=== PATIENT | female | born 1985 | race Caucasian/White ===

== ENCOUNTER 2018-11-23 11:43 | Emergency (ER) | payer BC, OTHER ==
--- NOTE | 2018-11-23 12:06 | EDM.PDOC ---
ED HPI GENERAL MEDICAL PROBLEM - General Chief Complaint: Respiratory Problem Stated Complaint: COUGH Time Seen by Provider: 11/23/18 11:43 Source of Information: Reports: Patient History Limitations: Reports: No Limitations - History of Present Illness INITIAL COMMENTS - FREE TEXT/NARRATIVE: HISTORY AND PHYSICAL: History of present illness: Patient is a 33-year-old woman presenting to the emergency room for chief complaint of cough. Patient states on Friday her cough developed and has been getting worse every day since. She describes her cough as dry, but sometimes it is productive and her mucous is green in color. She states that she has had a sore throat intermittently, "loss of voice", chest tightness, pain in her ears, headache, pressure in sinuses, congested, and did vomit on Friday with a "lot of mucus". She states that a warm shower does help with her congestion and getting the mucus out of her lungs. She denies being asthmatic, but does smoke 1 pack per day of cigarettes for the last 15 years. She does get short of breath with activity, otherwise denies shortness of breath. Patient also denies chest pain, abdominal pain, nausea, or vomiting. She has not been around anyone else who is currently sick. Review of systems: As per history of present illness and below otherwise all systems reviewed and negative. Past medical history: As per history of present illness and as reviewed below otherwise noncontributory. Surgical history: As per history of present illness and as reviewed below otherwise noncontributory. Social history: See social history for further information Family history: As per history of present illness and as reviewed below otherwise noncontributory. Physical exam: General: Patient is a well-groomed and well-nourished 33-year-old female. Alert and orientated. Nontoxic in appearance. Vital signs are stable and have been reviewed by me. HEENT: Patient is tender to palpation of the frontal and maxillary sinuses, normocephalic, pupils equal and reactive bilaterally, negative for conjunctival pallor or scleral icterus, mucous membranes moist, TMs normal bilaterally, throat clear, neck supple, nontender, trachea midline. No drooling or trismus noted. No meningeal signs. No hot potato voice noted. Lungs: Clear to auscultation, breath sounds equal bilaterally, chest nontender. Heart: S1S2, regular rate and rhythm without overt murmur Abdomen: Soft, nondistended, nontender. Negative for masses or hepatosplenomegaly. Negative for costovertebral tenderness. Skin: Intact, warm, dry. No lesions or rashes noted. Extremities: Atraumatic, moves all extremities per self without difficulty or deficits, negative for cords or calf pain. Neurovascular unremarkable. Neuro: Awake, alert, oriented. Cranial nerves II through XII unremarkable. Cerebellum unremarkable. Motor and sensory unremarkable throughout. Exam nonfocal. Notes: Patient denies being , stating that she has had an Essure procedure. Chest x-ray was normal. Due to the patient's symptoms of upper respiratory and sinus issues, we will treat with Augmentin. Supportive care measures were reviewed and discussed. Voices understanding and is agreeable to plan of care. Denies any further questions or concerns at this time. Diagnostics: Chest X ray, 2 views Therapeutics: None Prescription: Augmentin 875 mg Impression: Acute sinusitis Acute bronchitis Plan: 1. Take your medication as directed. 2. Tylenol and or ibuprofen as needed for pain management. 3. Follow-up with your primary care provider in the next 1-2 days if symptoms worsen as discussed. Return to the ED as needed and as discussed. Definitive disposition and diagnosis as appropriate pending reevaluation and review of above. Throat Pain Score (Numeric/FACES): 6 - Related Data Allergies Allergy/AdvReac Type Severity Reaction Status Date / Time morphine Allergy Nausea Verified 11/23/18 11:54 tramadol Allergy Nausea and Verified 11/23/18 11:54 Vomiting Home Meds: Home Meds Acid Medication 11/23/18 [History] Amoxicillin/Clavulanate K [Augmentin 875-125 MG] 1 tab PO BID 10 Days #20 tablet 11/23/18 [Rx] Gabapentin [Neurontin] 600 mg PO TID 11/23/18 [History] ED ROS GENERAL - Review of Systems Review Of Systems: ROS reveals no pertinent complaints other than HPI. ED EXAM, GENERAL - Physical Exam Exam: See Below (See dictation) Course - Vital Signs Last Recorded V/S: Last Vital Signs Temp 98.3 F 11/23/18 11:55 Pulse 97 11/23/18 11:55 Resp 18 11/23/18 11:55 BP 128/78 11/23/18 11:55 Pulse Ox 97 11/23/18 11:55 Departure - Departure Time of Disposition: 13:03 Disposition: Home, Self-Care 01 Clinical Impression: Bronchitis Sinusitis, acute Qualifiers: Sinusitis location: frontal Recurrence: non-recurrent Qualified Code(s): J01.10 - Acute frontal sinusitis, unspecified - Discharge Information Instructions: Sinusitis, Adult, [id number] Referrals: PCP,Not In Area [Primary Care Provider] - Forms: ED Department Discharge Additional Instructions: The following information is given to patients seen in the emergency department who are being discharged to home. This information is to outline your options for follow-up care. We provide all patients seen in our emergency department with a follow-up referral. The need for follow-up, as well as the timing and circumstances, are variable depending upon the specifics of your emergency department visit. If you don't have a primary care physician on staff, we will provide you with a referral. We always advise you to contact your personal physician following an emergency department visit to inform them of the circumstance of the visit and for follow-up with them and/or the need for any referrals to a consulting specialist. The emergency department will also refer you to a specialist when appropriate. This referral assures that you have the opportunity for follow-up care with a specialist. All of these measure are taken in an effort to provide you with optimal care, which includes your follow-up. Under all circumstances we always encourage you to contact your private physician who remains a resource for coordinating your care. When calling for follow-up care, please make the office aware that this follow-up is from your recent emergency room visit. If for any reason you are refused follow-up, please contact the [facility] Emergency Department at and asked to speak to the emergency department charge nurse. [facility] [address] [place] [id number] [address] Plan: 1. Take your medication as directed. 2. Tylenol and or ibuprofen as needed for pain management. 3. Follow-up with your primary care provider in the next 1-2 days if symptoms worsen as discussed. Return to the ED as needed and as discussed.
--- NOTE | 2018-11-23 13:01 | CR ---
INDICATION: Pain/SOB TECHNIQUE: Chest 2 view. COMPARISON: None. FINDINGS: Cardiovascular and mediastinum: Heart size and vasculature are normal in caliber and appearance. Mediastinum is within normal limits. Lungs and pleural space: Lungs are clear. No sign of infiltrate or mass. No sign of pleural effusion. No pneumothorax. Bones and soft tissues: No significant findings. IMPRESSION: Unremarkable chest. Dictated by: Oliver Das MD @ 11/23/2018 12:59:33 (Electronically Signed)
== END 2018-11-23 13:12 | disposition home or self-care (01) ==
LOC: MW.ED 11:43
DX: J01.10 Acute frontal sinusitis, unspecified (principal); J20.9 Acute bronchitis, unspecified; Z88.5 Allergy status to narcotic agent
CPT/HCPCS: 71046; 71046-26; 99282; 99283-25

== ENCOUNTER 2019-09-04 11:50 | Emergency (ER) | payer BC ==
[2019-09-04] MEDS ORDERED: Metoclopramide 10 MG/2 ML SDV IVPUSH ONE (12:49)
[2019-09-04] MEDS ORDERED: diphenhydrAMINE 50 MG/ML SDV IVPUSH ONE (12:49)
[2019-09-04] MEDS ORDERED: Ketorolac 30 MG/ML SDV IVPUSH ONE (12:50)
[2019-09-04] MEDS ORDERED: Sodium Chloride 0.9% 1,000 ML IV ONE (12:50)
[2019-09-04] MEDS ORDERED: Sodium Chloride 0.9% 2.5 ML Syringe FLUSH PRN (12:51)
[2019-09-04] MEDS ORDERED: Sodium Chloride 0.9% 10 ML Syringe FLUSH PRN (12:51)
--- NOTE | 2019-09-04 12:53 | EDM.PDOC ---
ED HPI GENERAL MEDICAL PROBLEM - General Chief Complaint: Headache Stated Complaint: MIGRAINE Time Seen by Provider: 09/04/19 12:41 - History of Present Illness INITIAL COMMENTS - FREE TEXT/NARRATIVE: History of present illness: Patient presents with a headache. Headache is been present for 7 days atraumatic afebrile she has a history of migraines this is like her typical migraine not getting better with [id number] and borrowed prescription medications. She denies any current vomiting no weakness on one side or another nothing makes it better movement and light make it worse Review of systems: As per history of present illness and below otherwise all systems reviewed and negative. Past medical history: As per history of present illness and as reviewed below otherwise noncontributory. Surgical history: As per history of present illness and as reviewed below otherwise noncontributory. Social history: No reported history of drug or alcohol abuse. Family history: As per history of present illness and as reviewed below otherwise noncontributory. Physical exam: HEENT: Atraumatic, normocephalic, pupils reactive, negative for conjunctival pallor or scleral icterus, mucous membranes moist, throat clear, neck supple, nontender, trachea midline. Lungs: Clear to auscultation, breath sounds equal bilaterally, chest nontender. Heart: S1S2, regular, negative for clicks, rubs, or JVD. Abdomen: Soft, nondistended, nontender. Negative for masses or hepatosplenomegaly. Negative for costovertebral tenderness. Pelvis: Stable nontender. Genitourinary: Deferred. Rectal: Deferred. Extremities: Atraumatic, negative for cords or calf pain. Neurovascular unremarkable. Neuro: Awake, alert, oriented. Cranial nerves II through XII unremarkable. Cerebellum unremarkable. Motor and sensory unremarkable throughout. Exam nonfocal. Diagnostics: [] Therapeutics: [] Impression: Headache [] Plan: Benadryl Reglan Toradol reassess [] Definitive disposition and diagnosis as appropriate pending reevaluation and re view of above. Headache Pain Score (Numeric/FACES): 10 - Related Data Allergies Allergy/AdvReac Type Severity Reaction Status Date / Time morphine Allergy Nausea Verified 11/23/18 11:54 tramadol Allergy Nausea and Verified 11/23/18 11:54 Vomiting Home Meds: Home Meds Gabapentin [Neurontin] 600 mg PO TID 11/23/18 [History] Naproxen Sodium [Anaprox DS] 550 mg PO BID #20 tab 09/04/19 [Rx] Pantoprazole Sodium [Protonix] 1 tab PO DAILY 09/04/19 [History] buPROPion HCL [Wellbutrin Xl] 300 mg PO DAILY 09/04/19 [History] methocarbamoL [Methocarbamol] 750 mg PO BID 09/04/19 [History] Past Medical History - Past Health History Medical/Surgical History: Denies Medical/Surgical History Gastrointestinal History: Reports: GERD Musculoskeletal History: Reports: Fibromyalgia Psychiatric History: Reports: Anxiety, Depression - Infectious Disease History Infectious Disease History: Reports: None Social & Family History - Family History Family Medical History: Noncontributory - Tobacco Use Smoking Status *Q: Current Every Day Smoker Years of Tobacco use: 10 Packs/Tins Daily: 2 - Caffeine Use Caffeine Use: Reports: Coffee - Recreational Drug Use Recreational Drug Use: Yes Recreational Drug Type: Reports: Marijuana/Hashish Recreational Drug Use Frequency: Weekly ED ROS GENERAL - Review of Systems Review Of Systems: See Below ED EXAM, GENERAL - Physical Exam Exam: See Below Course - Vital Signs Text/Narrative:: At 2:15 PM patient was reassessed she is feeling better after medications and wants to go home normal neurological exam discharge on naproxen Last Recorded V/S: Last Vital Signs Temp 35.9 C L 09/04/19 12:43 Pulse 87 09/04/19 12:43 Resp 16 09/04/19 12:43 BP 131/75 09/04/19 12:43 Pulse Ox 98 09/04/19 12:43 - Orders/Labs/Meds Orders: Active Orders 24 hr Category Date Time Status Sodium Chloride 0.9% [Saline Flush] Med 09/04/19 12:51 Active 10 ml FLUSH ASDIRECTED PRN Sodium Chloride 0.9% [Saline Flush] Med 09/04/19 12:51 Active 2.5 ml FLUSH ASDIRECTED PRN Saline Lock Insert [OM.PC] Stat Oth 09/04/19 12:51 Ordered Medication Orders Sodium Chloride (Saline Flush) 10 ml FLUSH ASDIRECTED PRN PRN Reason: Keep Vein Open Last Admin: 09/04/19 12:59 Dose: 10 ml Documented by: LIZETTE Sodium Chloride (Saline Flush) 2.5 ml FLUSH ASDIRECTED PRN PRN Reason: Keep Vein Open Last Admin: 09/04/19 13:00 Dose: 2.5 ml Documented by: [email or web address] Meds: Medications Generic Name Dose Route Start Last Admin Trade Name Freq PRN Reason Stop Dose Admin Sodium Chloride 10 ml 09/04/19 12:51 09/04/19 12:59 Saline Flush FLUSH 10 ml ASDIRECTED PRN Administration Keep Vein Open Sodium Chloride 2.5 ml 09/04/19 12:51 09/04/19 13:00 Saline Flush FLUSH 2.5 ml ASDIRECTED PRN Administration Keep Vein Open Discontinued Medications Generic Name Dose Route Start Last Admin Trade Name Freq PRN Reason Stop Dose Admin Diphenhydramine HCl 50 mg 09/04/19 12:49 09/04/19 12:59 Benadryl IVPUSH 09/04/19 12:50 50 mg ONETIME ONE Administration Sodium Chloride 1,000 mls @ 999 mls/hr 09/04/19 12:50 09/04/19 12:57 Normal Saline IV 09/04/19 13:50 999 mls/hr .Bolus ONE Administration Ketorolac Tromethamine 30 mg 09/04/19 12:50 09/04/19 12:59 Toradol IVPUSH 09/04/19 12:51 30 mg ONETIME ONE Administration Metoclopramide HCl 10 mg 09/04/19 12:49 09/04/19 12:59 Reglan IVPUSH 09/04/19 12:50 10 mg ONETIME ONE Administration Departure - Departure Time of Disposition: 14:15 Disposition: Home, Self-Care 01 Condition: Good Clinical Impression: Headache Qualifiers: Headache chronicity pattern: acute headache - Discharge Information *PRESCRIPTION DRUG MONITORING PROGRAM REVIEWED*: Not Applicable *COPY OF PRESCRIPTION DRUG MONITORING REPORT IN PATIENT ELENA: Not Applicable Instructions: General Headache Without Cause Referrals: PCP,None [Primary Care Provider] - Forms: ED Department Discharge Additional Instructions: The following information is given to patients seen in the emergency department who are being discharged to home. This information is to outline your options for follow-up care. We provide all patients seen in our emergency department with a follow-up referral. The need for follow-up, as well as the timing and circumstances, are variable depending upon the specifics of your emergency department visit. If you don't have a primary care physician on staff, we will provide you with a referral. We always advise you to contact your personal physician following an emergency department visit to inform them of the circumstance of the visit and for follow-up with them and/or the need for any referrals to a consulting specialist. The emergency department will also refer you to a specialist when appropriate. This referral assures that you have the opportunity for follow-up care with a specialist. All of these measure are taken in an effort to provide you with optimal care, which includes your follow-up. Under all circumstances we always encourage you to contact your private physician who remains a resource for coordinating your care. When calling for follow-up care, please make the office aware that this follow-up is from your recent emergency room visit. If for any reason you are refused follow-up, please contact the [facility] Emergency Department at and asked to speak to the emergency department charge nurse. Sepsis Event Note (ED) - Evaluation Sepsis Screening Result: No Definite Risk - Focused Exam Vital Signs: Vital Signs Temp Pulse Resp BP Pulse Ox 09/04/19 12:43 35.9 C L 87 16 131/75 98 - My Orders Last 24 Hours: My Active Orders 09/04/19 12:51 Sodium Chloride 0.9% [Saline Flush] 10 ml FLUSH ASDIRECTED PRN Sodium Chloride 0.9% [Saline Flush] 2.5 ml FLUSH ASDIRECTED PRN Saline Lock Insert [OM.PC] Stat - Assessment/Plan Last 24 Hours: My Active Orders 09/04/19 12:51 Sodium Chloride 0.9% [Saline Flush] 10 ml FLUSH ASDIRECTED PRN Sodium Chloride 0.9% [Saline Flush] 2.5 ml FLUSH ASDIRECTED PRN Saline Lock Insert [OM.PC] Stat
== END 2019-09-04 14:28 | disposition home or self-care (01) ==
LOC: MW.ED 11:50
DX: R51 Headache (principal); F41.9 Anxiety disorder, unspecified; F32.9 Major depressive disorder, single episode, unspecified; K21.9 Gastro-esophageal reflux disease without esophagitis; F17.210 Nicotine dependence, cigarettes, uncomplicated; Z88.5 Allergy status to narcotic agent; Z79.899 Other long term (current) drug therapy
CPT/HCPCS: 96374; 96375; 99283; J1200; J1885; J2765; J7030; 99282